=== PATIENT | male | born 1935 | race Caucasian/White ===

== ENCOUNTER 2018-05-02 07:45 | Inpatient (IN) ==
--- NOTE | 2018-04-07 11:08 | Anesthesiology Consultation ---
Date of Service April 07, 2018 Assessment & Plan (1) Encounter for pre-operative examination: Plan: - PCP note= 04/10/18= preop CXR reviewed; does not feel any infiltrate or atelectasis. To consider pursuing "postopertively." Seen by PCP= 04/17/18= "medical clearance is approved. Patient had a slight elevated of his white cell count and of lower lung field changes consistent with atelectasis on his preop.. placed on high dose azithromycin 500mg daily for five days and a repeat CXR done 04/17/18 with no acute findings. - Pulmonary= 01/19/18= Suspected component of obesity hypoventilation syndrome. "Doing well.. No significant complaints." Continued on same regimen. Chart Review Chart Review: Acceptable Risk for Surgery and Patient seen in Pre Admission Testing Teaching & Discussion Pre-Anesthesia Teaching/Discussion Notes: Instructed NPO after midnight before surgery,except medications with 15 cc of water. Medication instructions provided according to the PAT guidelines. History Surgery Operation Date: 05/02/18 11:55 Proposed Procedures p Left Total Knee Arthroplasty - Benny Chu DO Height/Weight Height: 5 ft 9 in Weight: 93.7 kg Allergies Allergy/AdvReac Type Severity Reaction Status Date / Time atropine [From Lomotil] Allergy Unknown Nausea Verified 04/04/18 12:08 diphenoxylate [From Lomotil] Allergy Unknown Nausea Verified 04/04/18 12:08 metronidazole Allergy Unknown felt like Verified 04/04/18 12:08 he was floating Medications Home Medications Medication Instructions Recorded Confirmed Last Taken albuterol sulfate [ProAir HFA] 2 puff INHALATION QID PRN 04/04/18 04/04/18 Unknown aspirin [Aspirin Low Dose] 81 mg PO QAM 04/04/18 04/04/18 Unknown calcium carbonate [Calcium 500] 500 mg PO BID 04/04/18 04/04/18 Unknown denosumab [Prolia] 1 dose SUBCUT Q6M 04/04/18 04/04/18 Unknown fluticasone-vilanterol [Breo 1 inh INHALATION QAM 04/04/18 04/04/18 Unknown Ellipta] montelukast 10 mg PO PM 04/04/18 04/04/18 Unknown multivitamin 1 tab PO QAM 04/04/18 04/04/18 Unknown naproxen sodium [Aleve] 220 mg PO BID PRN 04/04/18 04/04/18 Unknown tiotropium bromide [Spiriva with 1 cap INHALATION QPM 04/04/18 04/04/18 Unknown HandiHaler] Past Medical History Medical History Asthma ON 3L PRN ACTIVITY (FEW HOURS/DAY) Chronic obstructive pulmonary disease ON 3L PRN ACTIVITY (FEW HOURS/DAY) Hiatal hernia SMALL Hx of osteoporosis Obesity Osteoarthritis Past Family History Family History Other FHx: cancer Past Surgical History Surgical History History of back surgery History of cataract surgery B/L History of repair of hiatal hernia Hx of cardiac cath 1980= NO STENTS Hx of cholecystectomy Hx of tooth extraction Past Anesthesia History No Hx of Anesthesia Complications Patient denies family history of issues with anesthesia complications. History of PONV No Motion Sickness Screening History of Motion Sickness: No Social History Smoking Status: Former smoker Smoking End Date: QUIT 2013; 1 PPD X 40 YEARS Hx Alcohol Use: Yes alcohol intake frequency: holidays/special occasions only Hx Substance Use: No Exercise / Class Metabolic Activity III < 4 Walking/Shop/Light housework Review of Systems Patient denies chest pain, shortness of breath (with 3L O2 PRN activity), joint pain, reflux, cough, wheezing, palpitations. Physical Exam Vital Signs VITALS BP 126/81 P 77 TEMP 97.7 RESP 20 SP02 91% on 3L O2 via NC Full neck and c-spine range of motion. Full TMJ range of motion. TMD 2.5 finger breaths Mallampati Score 3 Dentition: full dentures upper; lower partial Lungs: clear throughout to auscultation Cardiac: regular rate and rhythm, no murmurs noted Spine: normal Carotid arteries: negative bruit Extremities: no edema on 3L O2 via NC Testing Electrocardiogram Date: 04/07/18 Findings: + NSR @ (77) Chest X-Ray Date: 04/07/18 Mild cardiomegaly. Infiltrative versus atelectatic changes left lung base. Study is otherwise unremarkable. Repeat CXR= 04/17/18= No active cardiopulmonary disease. Methylmethacrylate present within 3 contiguous mid thoracic vetebra. Compression deformity of multiple thoracic vertebra present (PCP oredered/monitoring). Echocardiogram Date: 01/16/18 EF 56%. Mild AV/MV thickening. No RWMA. Laboratory Results 04/07/18 11:34 04/07/18 11:34 Blood Type B Positive 04/07/18 11:34 Antibody Screen NEGATIVE 04/07/18 11:34 PT 10.3 Seconds (9.0-12.0) 04/07/18 11:34 INR 1.0 (0.9-1.1) 04/07/18 11:34 APTT 24.7 Seconds (21.0-31.0) 04/07/18 11:34 Hemoglobin A1c 5.6 % (4.5-5.6) 04/07/18 11:34 Surgeon made aware of elevated WBC. 04/12/18 UA negative urine culture no growth
--- NOTE | 2018-04-07 11:11 | PAT Medication Instructions ---
Medication Instructions Date of Service April 07, 2018 Home Medications albuterol sulfate [ProAir HFA] 2 puff INHALATION QID PRN aspirin [Aspirin Low Dose] 81 mg PO QAM calcium carbonate [Calcium 500] 500 mg PO BID denosumab [Prolia] 1 dose SUBCUT Q6M fluticasone-vilanterol [Breo 1 inh INHALATION QAM montelukast 10 mg PO PM multivitamin 1 tab PO QAM naproxen sodium [Aleve] 220 mg PO BID PRN tiotropium bromide [Spiriva with 1 cap INHALATION QPM Continue as directed denosumab [Prolia] 1 dose SUBCUT Q6M Per surgeon's instructions naproxen sodium [Aleve] 220 mg PO BID PRN Hold the morning of surgery calcium carbonate [Calcium 500] 500 mg PO BID multivitamin 1 tab PO QAM Take morning of surgery Take the following medication the morning of surgery with a sip of water, OTHERWISE NOTHING TO EAT OR DRINK AFTER MIDNIGHT: albuterol sulfate [ProAir HFA] 2 puff INHALATION QID PRN (if needed) aspirin [Aspirin Low Dose] 81 mg PO QAM fluticasone-vilanterol [Breo 1 inh INHALATION QAM Take evening before surgery albuterol sulfate [ProAir HFA] 2 puff INHALATION QID PRN (if needed) montelukast 10 mg PO PM tiotropium bromide [Spiriva with 1 cap INHALATION QPM Other Notes If you have any questions please call us at [phone] or [phone] or [phone] or [phone]
--- NOTE | 2018-04-07 11:13 | History & Physical Report ---
Date of Service April 07, 2018 Assessment & Plan (1) Osteoarthritis of left knee: Risks and benefits of procedure discussed in detail today, patient would like to proceed with Left TKA @ [facility] as scheduled. will obtain medical clearance prior to surgery as well as obtain PATs at [facility]. Will place on ASA 81mg po bid x 1 month post op, f/u 2 weeks post op for routine post-operative care and xray, sooner if having any problems. Patient unsure at this time if he would like HHPT vs rehab, we will track his progression while inpatient after PT. History of Present Illness Chief Complaint: left knee pain Primary Care Provider: Alexsander Guzman Mr Cervantes is a 82 year old male who is here for a follow up of left knee pain, presents for pre-op evaluation prior to left total knee replacement by dr gamboa at [facility]. He presents with pain on the left side and is chronic non-traumatic. The symptoms occur constantly with intermittent worsening. The problem is unchanged. Currently the patient states that the symptoms are moderate-severe. The pain is described as aching, discomforting and throbbing. The symptoms occur continuously. He rates his current pain as 7/10. The symptoms are aggravated by ascending stairs, descending stairs, kneeling and squatting. Tu states that the symptoms are relieved by no specific activity. In addition to left knee pain the patient is also experiencing limping, nighttime awakening and stiffness. The patient has had a previous MRI and x-ray. Prior NSAIDS include Aleve, naproxen, and aspirin. He has corticosteroid injection on the left side. Patient has had previous visco and Euflexxa series of 3 injections. Allergies Allergy/AdvReac Type Severity Reaction Status Date / Time atropine [From Lomotil] Allergy Unknown Nausea Verified 04/04/18 12:08 diphenoxylate [From Lomotil] Allergy Unknown Nausea Verified 04/04/18 12:08 metronidazole Allergy Unknown felt like Verified 04/04/18 12:08 he was floating Home Medications Home Medications Medication Instructions Recorded Confirmed Type albuterol sulfate [ProAir HFA] 2 puff INHALATION QID PRN 04/04/18 04/04/18 History aspirin [Aspirin Low Dose] 81 mg PO QAM 04/04/18 04/04/18 History calcium carbonate [Calcium 500] 500 mg PO BID 04/04/18 04/04/18 History denosumab [Prolia] 1 dose SUBCUT Q6M 04/04/18 04/04/18 History fluticasone-vilanterol [Breo 1 inh INHALATION QAM 04/04/18 04/04/18 History Ellipta] montelukast 10 mg PO PM 04/04/18 04/04/18 History multivitamin 1 tab PO QAM 04/04/18 04/04/18 History naproxen sodium [Aleve] 220 mg PO BID PRN 04/04/18 04/04/18 History tiotropium bromide [Spiriva with 1 cap INHALATION QPM 04/04/18 04/04/18 History HandiHaler] Past Med/Surg History Medical History Asthma ON 3L PRN Chronic obstructive pulmonary disease ON 3L PRN Hx of osteoporosis On supplemental oxygen therapy 3L PRN Osteoarthritis Surgical History History of back surgery History of cataract surgery B/L History of repair of hiatal hernia Hx of cardiac cath 1981= NO STENTS Hx of cholecystectomy Hx of tooth extraction Family History Other FHx: cancer Social History Current Living Situation: Significant Other Other Information That Helps Us Care for You: No Feels Safe at Home: Yes Safety Concerns: Feels Safe At This Time Smoking Status: Former smoker Smoking End Date: 2013 Hx Alcohol Use: Yes Alcohol Intake Frequency: holidays/special occasions only Hx Substance Use: No Beliefs That Will Affect Care: None Preferred Language: Bengali Communication Ability: Effective Review of Systems All systems reviewed & are unremarkable except as noted in HPI & below Physical Exam 2 Constitutional: well developed and well nourished; no acute distress (using 3L oxygen via nasal canula) Respiratory: + audible wheezes; no respiratory distress (on 3L via nasal cannula), no labored breathing and no cough Cardiovascular: RRR, no murmur, no edema Gastrointestinal (Abdomen): normal bowel sounds, soft, nontender, no hepatosplenomegaly Musculoskeletal: Left Knee Physical Exam Details Ankle ROM L * Active ROM - Factors: normal, Description: active pain free range of motion. Passive ROM - Factors: normal, Description: passive pain free range of motion. Hip ROM L * Active ROM - Factors: normal, Description: active pain free range of motion. Passive ROM - Factors: normal, Description: passive pain free range of motion. Knee ROM L * Active ROM - Flexion: 115 degrees, Extension: 3 degrees, Factors: pain, Description: active painful range of motion. Passive ROM - Flexion: 120 degrees , Extension: 3 degrees, Factors: pain, Description: passive painful range of motion. Strength LE Normal Strength Description - Normal lower extremity: Bilateral. Hip: Right: strength is normal, Left: strength is normal. Knee: Right: strength is normal, Left: strength is normal. Ankle/Foot: Right: strength is normal, Left: strength is normal. Knee * Inspection - Gait: limp. Alignment - Right: varus, Clinical, Left: varus. Ecchymosis - Right: none, Left: none. Effusion - Right: mild, Left: mild. Swelling - Right: mild. Maximum tenderness - Right: diffuse, Left: diffuse. Patella exam - Crepitation - Right: moderate, Left: moderate. Edwin's - Left: Positive. Jelani's - lateral - Right: Positive, Left: Positive. [facility]'s - medial - Right: Positive, Left: Positive. Knee Comments Calf SNT, DP+2 Knee Normal Inspection - Atrophy - Right: Absent, Left: Absent. Patella exam - Apprehension - Right: Negative. Edwin's - Right: Negative. Valgus stress - Right: Negative , Left: Negative. Varus stress - Right: Negative, Left: Negative. Extensor lag - Right: Normal, Left: Normal. Neurovascular LE Normal Neurovascular examination including reflexes, sensation, and pulses is within normal limits. Results & Data Diagnostic Findings Left knee X-ray: findings consistent with degenerative joint disease, joint space narrowing, osteophyte formation, osteophyte formation. chondrocalcinosis present medial and lateral compartments. no acute bony pathology.
--- NOTE | 2018-04-07 12:05 | XRay Report ---
XR chest Pre-admission PA/Lat CLINICAL HISTORY: pat preoperative evaluation COMPARISON STUDY: No previous studies for comparison. FINDINGS: Mild cardia megaly. Atelectatic versus infiltrative change left base. Otherwise appear chaitanya r. Several vertebral plasties of the mid thoracic region. IMPRESSION: Infiltrative versus atelectatic changes left lung base. Study is otherwise unremarkable. The above report was generated using voice recognition software. It may contain grammatical, syntax or spelling errors. Electronically signed by: Rigoberto Fowler M.D. 04/07/2018 12:04 PM
[2018-04-07 12:37] LABS: Basophils # (auto) 0.05 K/uL (0-0.2); Basophils % (auto) 0.4 %; Eosinophils # (auto) 0.09 K/uL (0-0.5); Eosinophils % (auto) 0.7 %; Hematocrit (blood only) 44.9 % (42-52); Hemoglobin 15.2 g/dL (14.0-18.0); Immature Granulocytes # (auto) 0.08 K/uL (0.00-0.02); Immature Granulocytes % (auto) 0.6 %; Lymphocytes # (auto) 1.54 K/uL (1.2-3.4); Lymphocytes % (auto) 12.5 %; Mean Corpuscular Hgb Conc 33.9 g/dL (32-36); Mean Corpuscular Volume 92.4 fL (80-100); Mean Platelet Volume 10.4 fL (7.4-10.4); Monocytes # (auto) 1.23 K/uL (0.11-0.59); Neutrophils # (auto) 9.32 K/uL (1.4-6.5); Neutrophils % (auto) 75.8 %; Platelet Count 195 K/uL (130-400); RDW Coefficient of Variation 13.9 % (11.5-14.5); Red Blood Count 4.86 M/uL (4.7-6.1); White Blood Count 12.31 K/uL (4.8-10.8)
[2018-04-07 12:44] LABS: Albumin Level 3.5 gm/dl (3.4-5.0); BUN Creatinine Ratio 27.9 (10-20); Calcium 8.9 mg/dl (8.5-10.1); Creatinine Clr Calc Pharmacy 103.9 ml/min; Est GFR (African American) 107.1; Est GFR (Non-African American) 92.4
[2018-04-07 12:49] LABS: Partial Thromboplastin Time 24.7 Seconds (21.0-31.0); Prothrombin Time 10.3 Seconds (9.0-12.0)
[2018-04-07 12:56] LABS: Estimated Average Glucose 114 mg/dl
[~2018-05-02 07:45] MED LIST: ACETAMINOPHEN 500 MG TAB PO SCH; BUPIVACAINE 0.5 % 5 MG/1 ML PF 10ML VIAL ONE; CEFAZOLIN 2000MG 2,000 MG/15 ML SYR IV SCH; CeleBREX 200 MG CAP PO SCH; FAMOTIDINE 20 MG TAB PO SCH; GABAPENTIN 300 MG PO SCH; LR 15ML/HR IV SCH; LR 500ML BOLUS IV SCH; METOCLOPRAMIDE HCL 10 MG TABLET PO SCH; ROPIVACAINE 0.5% 5 MG/ML 30 ML VIAL ONE; ROPIVACAINE 0.5% HCL/PF 150 MG, BUPIVACAINE 0.5% MPF 30 ML, EPINEPHrine 30MG/30ML (OR U... INFIL SCH; TRANEXAMIC ACID 1,000 MG **IV Intra-op IV SCH; TRANEXAMIC ACID 1,000 MG **IV Pre-op IV SCH; dexAMETHasone 4 MG TAB PO SCH
[2018-05-02] MEDS ORDERED: PROPOFOL IV EMULSION 10 MG/ML 20 ML VIAL IV ONE (07:46)
[2018-05-02] MEDS ORDERED: MIDAZOLAM HCL 1 MG/ML 2ML VIAL ONE (07:46)
[2018-05-02] MEDS ORDERED: fentaNYL citrate 100 MCG/2 ML VIAL ONE (07:46)
[2018-05-02] MEDS: LR 500ML BOLUS, THEN 15ML/HR IV SCH (08:11)
--- NOTE | 2018-05-02 08:42 | History & Physical Bridge Note ---
Date of Service May 02, 2018 History & Physical Bridge Note I have examined the patient, reviewed the History & Physical and in the interval since the performance of the History & Physical I have noted the following changes of clinical significance: no changes noted
[2018-05-02] MEDS ORDERED: ORTHO JOINT ANESTHETIC ONE (09:36)
[2018-05-02] MEDS ORDERED: BACITRACIN INJ 50,000 UNIT VIAL ONE (09:37)
[2018-05-02] MEDS ORDERED: POVIDONE-IODINE OP SOLN 30 ML BTL ONE (09:37)
--- NOTE | 2018-05-02 11:46 | Operative Report ---
Post Operative Report Date of Surgery May 02, 2018 Pre & Post Diagnosis Operation Date: 05/02/18 10:35 Pre-Op Diagnosis: LEFT KNEE OSTEOARTHRITIS Post-Op Diagnosis: LEFT KNEE OSTEOARTHRITIS Procedure Operation Date: 05/02/18 10:35 Actual Procedures p Left Total Knee Arthroplasty(Left) utilizing Velázquez [employer] Nephew journey 2 long block total knee arthroplasty femur size 7 tibia size 7 polyethylene size 9 patella size 35 oval patella- Benny Chu DO Surgeon Benny Chu DO Disaster Director Reid KAMARA Estimated Blood Loss 5 Findings Consistent with Post-Op Diagnosis Patient presents as an 82-year-old white male with severe end-stage tricompartmental degenerative joint disease no response to conservative therapy upon the bone changes patient presents subchondral cystic changes marginal osteophytes Specimens patellofemoral DJD and eburnated bone medial compartment as well as patellofemoral compartment patient presents for left total knee arthroplasty above findings are noted also to be a moderate or large effusion Drains Medium bore Hemovac Complications none Disposition Accompanied Patient To Recovery: No Disposition: Recovery Room Indications Patient presents as a 82-year-old white male with severe surveys including physical therapy bracing anti-inflammatories relative rest activity modification as well as intra-articular corticosteroid injection and Visco supplementation patient presents for total neuroplasty above findings were noted with severe end-stage DJD [id number] medial osteophyte subchondral cystic changes Description of Procedure After proper prepping and draping of the left lower extremity anterior midline incision was made over the region of the extensor extensor mechanism after meticulous hemostasis was obtained and maintained in subcutaneous tissues a medial parapatellar incision was made The patella was subluxed lateralward the medial lateral gutter were cleaned from any hypertrophic synovitis and scar tissue of the distal femoral block was placed and the distal femoral osteotomy cut was made subsequently the chamfers anterior and posterior osteotomy cuts were made utilizing the 4-in-1 block the tibia was subsequently subluxed anteriorward medial and ateral meniscal remnants were excised in their entirety remnants of the anterior and posterior cruciate ligaments were excised in their entirety excellent exposure of the proximal tibia was obtained the tibial osteotomy guide was placed on the proximal tibial osteotomy cut was made once again the knee was irrigated with copious amounts of sterile saline solution the patella was subsequently everted lateralward thickened scar tissue around the patella was removed the patella was subsequently cut utilizing a freehand technique and was drilled prepared for final preparation and placement of patella socially flexion-extension gaps were checked and the equal and symmetric trials were placed to the appropriate femoral and tibial trials with poly-spacer being placed for equal flexion and extension gaps and full range of motion including extension to 0 and flexion to 140 the trial components after having been taken to recovery range of motion was subsequently removed meticulous hemostasis was obtained and maintained subsequently a knee block injection of joint cocktail including ropivacaine 0.5% 150 mg. Bupivacaine 0.5 % epinephrine 1-200,030 mL's toradol 30 mg dexamethasone 4 mg ketamine 10 mg clonidine 100 micrograms normal saline solution 30 mg was infiltrated into the soft tissues of the posterior knee medial lateral gutters and periosteal synovium special attention was paid to protect neurovascular structures at all times subsequently trial components having been removed the knee was irrigated with sterile saline solution. debris was removed the proximal tibia was subsequently prepared and was made ready for the placement of the tibial component tibial component was also cemented and tamped into position the femoral component was subsequently placed and cemented in the position the patellar component was subsequently cemented in position because hemostasis once again obtained and maintained wound having been thoroughly irrigated with debridement and debridement lavage was performed as well as a medial parapatellar incision closed with #1 Vicryl in interrupted fashion subcutaneous was closed with #2 Vicryl skin was closed with skin clips. PA-C was necessary for prepping and drapping as well as wound closure of deep fascia Sub cutaneous tissue and skin and was necessary for the case. A sterile compressive dressing was placed patient was taken to recovery in stable condition of report dictated by Vlad I attest to the content of the Intraoperative Record and any orders documented therein. Any exceptions are noted below. I attest to the content of the Intraoperative Record and any orders documented therein. Any exceptions are noted below.
--- NOTE | 2018-05-02 12:52 | XRay Report ---
XR knee LT 2V routine HISTORY: 82 years-old Male Surgical Post Op left knee total joint arthroplasty. History of degenerat elijah joint disease. COMPARISON: Left knee radiographs 03/20/2018 TECHNIQUE: 2 views of the left knee FINDINGS: Left knee total joint arthroplasty with patellar resurfacing. Anterior midline skin angela are noted along with surgical drainage catheter and expected postsurgical soft tissue swelling with deep tissu e air. Alignment is satisfactory without acute fracture or retained foreign body. IMPRESSION: Left knee total joint arthroplasty and patella resurfacing demonstrates satisfactory alig nment The above report was generated using voice recognition software. It may contain grammatical, syntax o r spelling errors. Electronically signed by: Tho Mcgee M.D. 05/02/2018 12:51 PM
[2018-05-02] MEDS ORDERED: MAGNESIUM HYDROXIDE SUSP 30 ML UDC PO PRN (12:57)
[2018-05-02] MEDS ORDERED: ALUMINUM/MAGNESIUM SUSP 30 ML UDC PO PRN (12:57)
[2018-05-02] MEDS ORDERED: MoRPHine SULFATE 2 MG/ML CARP IV PRN (12:57)
[2018-05-02] MEDS ORDERED: HYDROmorphone INJ 1 MG/ML SYRINGE IV PRN (12:58)
--- NOTE | 2018-05-02 13:03 | Anesthesiology Progress Note ---
Date of Service May 02, 2018 Anesthesia Post Procedure Vital Signs Vital Signs: Temp Pulse Pulse Resp BP BP Pulse Ox 05/02/18 12:55 36.9 C 72 18 118/72 96 05/02/18 12:45 72 18 93 05/02/18 12:41 73 21 123/73 94 05/02/18 12:40 71 19 93 05/02/18 12:36 71 19 108/67 95 05/02/18 12:35 72 21 95 05/02/18 12:31 70 22 116/68 97 05/02/18 12:30 71 18 98 05/02/18 12:26 71 22 117/70 97 05/02/18 12:24 36.2 C L 72 71 19 107/75 107/75 96 05/02/18 08:10 36.7 C 91 H 18 140/89 94 Pain Intensity Left Knee: Pain Intensity: 0 Notes Mental Status: alert / awake / arousable Patient Amnestic to Procedure: Yes Nausea / Vomiting: adequately controlled Pain: adequately controlled Airway Patency, RR, SpO2: stable & adequate BP & HR: stable & adequate Hydration State: stable & adequate Anesthetic Complications: no major complications apparent and Pt Satisfied with anesthetic care
[2018-05-02] MEDS ORDERED: ALBUTEROL HFA 8 GM INHALER INH PRN (14:15)
--- NOTE | 2018-05-02 14:28 | Consultation ---
Date of Consultation May 02, 2018 Assessment & Plan (1) Osteoarthritis of left knee: - S/P L TKA on 05/02 and doing well post-operative - Pain management, DVT prophylaxis, IVF, PT/OT, surgical management per primary - DVT prophylaxis - ASA 81 mg BID - Patient does express desire for rehab prior to returning home due to multiple steps at his home Present on Admission?: Yes (2) COPD (chronic obstructive pulmonary disease): - No recent exacerbations; has not required intubation for previous exacerbations - Albuterol QID PRN; Montelukast 10 mg daily; Breo daily; Spiriva daily - would like to take home medications as this was brought in and can be arranged robbi. since Breo in non-formulary Present on Admission?: Yes (3) Eosinophilic asthma: - Treatment as above - no acute exacerbation Present on Admission?: Yes (4) Hypothyroidism: - Levothyroxine 100 mcg daily Present on Admission?: Yes History of Present Illness Reason for Consultation: Medical Management Attending Physician: Benny Chu, DO History of Present Illness Mr. Cervantes is an 82 y/o male with PMHx of Eosinophilic Asthma, COPD, and Hypothyroidism who is S/P L TKA. Patient reports good control of this respiratory conditions and utilizes his rescue inhaler as needed. States he normally keeps this on him and typically uses it everyday. Denies needing a nebulizer. Denies having any recent exacerbations requiring steroid treatment, etc. He has not required intubation for his respiratory conditions. He does use supplemental O2 as needed at home. He denies H/O cardiac disease. Had a heart catheterization in the 1980s without need for PCI. Denies angina or exertional CP. Echo with EF 56% and mild aortic and mitral thickening without stenosis or regurgitation. No H/O DVT/PE in the past. Allergies Allergy/AdvReac Type Severity Reaction Status Date / Time atropine [From Lomotil] Allergy Unknown Nausea Verified 05/02/18 08:02 diphenoxylate [From Lomotil] Allergy Unknown Nausea Verified 05/02/18 08:02 metronidazole Allergy Unknown felt like Verified 05/02/18 08:02 he was floating Home Medications Home Medications Medication Instructions Recorded Confirmed Type albuterol sulfate [ProAir HFA] 2 puff INHALATION QID PRN 04/04/18 05/02/18 History aspirin [Aspirin Low Dose] 81 mg PO QAM 04/04/18 04/04/18 History calcium carbonate [Calcium 500] 500 mg PO BID 04/04/18 05/02/18 History denosumab [Prolia] 1 dose SUBCUT Q6M 04/04/18 04/04/18 History fluticasone-vilanterol [Breo 1 inh INHALATION QAM 04/04/18 05/02/18 History Ellipta] montelukast 10 mg PO PM 04/04/18 05/02/18 History multivitamin 1 tab PO QAM 04/04/18 05/02/18 History naproxen sodium [Aleve] 220 mg PO BID PRN 04/04/18 04/04/18 History tiotropium bromide [Spiriva with 1 cap INHALATION QPM 04/04/18 05/02/18 History HandiHaler] levothyroxine 100 mcg PO DAILY 05/02/18 05/02/18 History Patient History Medical History Asthma ON 3L PRN ACTIVITY (FEW HOURS/DAY) Chronic obstructive pulmonary disease ON 3L PRN ACTIVITY (FEW HOURS/DAY) Hiatal hernia SMALL Hx of osteoporosis Obesity Osteoarthritis Surgical History History of back surgery History of cataract surgery B/L History of repair of hiatal hernia Hx of cardiac cath 1981= NO STENTS Hx of cholecystectomy Hx of tooth extraction Family History Other FHx: cancer Social History Current Living Situation: Significant Other Other Information That Helps Us Care for You: No Feels Safe at Home: Yes Safety Concerns: Feels Safe At This Time Smoking Status: Former smoker Smoking End Date: QUIT 2013; 1 PPD X 40 YEARS Hx Alcohol Use: Yes Alcohol Intake Frequency: holidays/special occasions only Hx Substance Use: No Beliefs That Will Affect Care: None Preferred Language: Nepali Communication Ability: Effective Review of Systems Constitutional: no fever, no chills, no fatigue and no weakness Eyes: no worsening vision Ear, Nose, Mouth, Throat: no nasal congestion, no sore throat, no hoarseness and no dysphagia Respiratory: no cough, no chest congestion, no dyspnea and no wheezing Cardiovascular: no chest pain, no palpitations and no edema Gastrointestinal: no abdominal pain, no nausea, no vomiting, no constipation and no diarrhea/loose stools Genitourinary (Male): no dysuria Musculoskeletal: no joint pain and no swelling Integumentary: no rash Neurologic: no tingling and no numbness Physical Exam 2 Vital Signs (Past 24 Hours): Last Vital Signs Temp 36.7 C 05/02/18 13:20 Pulse 74 05/02/18 14:17 Resp 18 05/02/18 14:17 BP 98/61 L 05/02/18 14:17 Pulse Ox 93 05/02/18 14:17 Constitutional: WD/WN, vitals as above Eyes: + anicteric sclerae Neck: trachea midline Respiratory: normal respiratory effort, lungs clear to auscultation Auscultation: + diminished lung sounds Cardiovascular: Rate/Rhythm: regular rate and regular rhythm Heart Sounds: no murmur Gastrointestinal (Abdomen): Inspection/Auscultation: normal bowel sounds Percussion/Palpation: abdomen soft; abdomen nontender Musculoskeletal: Head/Neck/Chest: normocephalic and head atraumatic Skin: no rashes, warm and dry Neurologic: moves all extremities Psychiatric: A+Ox3, euthymic affect
[2018-05-02] MEDS: SODIUM CHLORIDE 0.9% 1000ML 1,000 ML IV SCH (14:41)
[2018-05-02] MEDS: ACETAMINOPHEN 500 MG TAB PO SCH ×2 (14:42→21:13)
[2018-05-02] MEDS: BREO ELLIPTA INH SCH (18:25)
[2018-05-02] MEDS: FERROUS GLUCONATE 324 MG TAB PO SCH (18:27)
[2018-05-02] MEDS: CEFAZOLIN 2000MG 2,000 MG/15 ML SYR IV SCH (20:51)
[2018-05-02] MEDS: MONTELUKAST SODIUM 10 MG TABLET PO SCH (20:56)
[2018-05-02] MEDS: ASPIRIN 81 MG ECTAB PO SCH (20:56)
[2018-05-02] MEDS: DOCUSATE SODIUM 100 MG CAP PO SCH (20:56)
[2018-05-02] MEDS: SENNA 8.6 MG TAB PO SCH (20:56)
[2018-05-03] MEDS: SODIUM CHLORIDE 0.9% 1000ML 1,000 ML IV SCH (00:31)
[2018-05-03] MEDS: LR 500ML BOLUS, THEN 15ML/HR IV SCH ×2 (03:45→03:46)
[2018-05-03] MEDS: OXYCODONE HCL IR 5 MG TAB (IMMEDIATE RELEASE) PO PRN ×4 (04:13→20:39)
[2018-05-03] MEDS: CEFAZOLIN 2000MG 2,000 MG/15 ML SYR IV SCH (04:13)
[2018-05-03] MEDS: ACETAMINOPHEN 500 MG TAB PO SCH ×3 (06:10→22:48)
[2018-05-03] MEDS: LEVOTHYROXINE SODIUM 100 MCG TABLET PO SCH (06:11)
[2018-05-03] MEDS ORDERED: COUGH DROP (SUGAR FREE) LOZ 24 LOZ/1 BOX BUCCAL ONE (06:11)
[2018-05-03 07:12] LABS: Hematocrit (blood only) 37.3 % (42-52); Hemoglobin 12.5 g/dL (14.0-18.0); Mean Corpuscular Hgb Conc 33.5 g/dL (32-36); Mean Corpuscular Volume 91.4 fL (80-100); Mean Platelet Volume 10.4 fL (7.4-10.4); Platelet Count 162 K/uL (130-400); RDW Coefficient of Variation 13.3 % (11.5-14.5); RDW Standard Deviation 44.3 fL (36.4-46.3); Red Blood Count 4.08 M/uL (4.7-6.1); White Blood Count 13.54 K/uL (4.8-10.8)
--- NOTE | 2018-05-03 07:26 | Orthopedic Progress Note ---
Date of Service May 03, 2018 Assessment & Plan (1) History of total left knee replacement: POD #1 s/p Left TKA pt/ot dvt proph with ASA/ISIDRO/SCD d/c discharge options, he would like to discuss Sorin the [place], he will discuss with CM Patient normally on 2L O2 at home at rest and increases to 3L when out and moving around, currently back on 2L. appreciate medicine recommendations: COPD - Albuterol QID PRN; Montelukast 10 mg daily; Breo daily; Spiriva daily - would like to take home medications as this was brought in and can be arranged robbi. since Breo in non-formulary Present on Admission?: Yes Eosinophilic asthma: - Treatment as above - no acute exacerbation Hypothyroidism: - Levothyroxine 100 mcg daily (2) Osteoarthritis of left knee: Subjective POD #1 s/p Left TKA denies CP or SOB denies F/Chills pain 07/02 Physical Exam 2 Vital Signs (Past 24 Hours): Last Vital Signs Temp 36.5 C 18 07:07 Pulse 53 L 05/03/18 07:07 Resp 18 05/03/18 07:07 BP 131/89 05/03/18 07:07 Pulse Ox 61 L 05/03/18 07:07 Constitutional: no acute distress Musculoskeletal: NVDI, calf SNT, negative andrew sign. DP palpable, able to wiggle toes/ankle movement without difficulty. dressing clean dry and intact. Vital Signs Temp 36.5 C 05/03/18 07:07 Pulse 53 L 05/03/18 07:07 Resp 18 05/03/18 07:07 BP 131/89 05/03/18 07:07 Pulse Ox 61 L 05/03/18 07:07 Intake & Output 05/02/18 05/03/18 05/03/18 18:59 06:59 18:59 Intake Total 2099 / 2100 1483.333 / 1483.33 3 Output Total 66 / 66 1310 / 1310 Balance 2033 / 2033 173.333 / 173.333 Weight 92.4 kg Intake: IV 1300 / 1300 1183.333 / 1183.33 3 Lr 1,000 ml @ 999 mls/hr IV . 800 / 800 Q1H1M MATTIE Rx#: [id number] Nss 1000ML 1,0 00 ml @ 100 mls/ 390 / 390 1183.333 / 1183.33 3 hr IV .Q10H SC H Rx#:[id number] Cyklokapron 1, 000 mg In Sodium 110 / 110 Chloride 100 m l @ 660 mls/hr IV TODAY@0600 [facility] Rx#:[id number] IV Perioperative 800 / 800 Oral 300 / 300 Output: Urine 1100 / 1100 Estimated Blood Loss 5 / 5 Drain Output 210 / 210 Left Knee Hemo vac #1 210 / 210
[2018-05-03 07:51] LABS: BUN Creatinine Ratio 20.2 (10-20); Calcium 7.8 mg/dl (8.5-10.1); Creatinine Clr Calc Pharmacy 94.5 ml/min; Est GFR (African American) 102.6; Est GFR (Non-African American) 88.5; Potassium 4.2 mmol/L (3.5-5.1)
[2018-05-03] MEDS: FERROUS GLUCONATE 324 MG TAB PO SCH ×3 (08:41→16:44)
[2018-05-03] MEDS: MULTIVITAMIN TAB PO SCH (08:41)
[2018-05-03] MEDS: ASPIRIN 81 MG ECTAB PO SCH ×2 (08:41→20:40)
[2018-05-03] MEDS: BREO ELLIPTA INH SCH ×2 (08:42→08:50)
[2018-05-03] MEDS: DOCUSATE SODIUM 100 MG CAP PO SCH ×2 (08:44→21:37)
--- NOTE | 2018-05-03 13:59 | Hospitalist Progress Note ---
Date of Service May 03, 2018 Assessment & Plan (1) Osteoarthritis of left knee: - S/P L TKA on 05/02 and doing well post-operatively - Pain management, DVT prophylaxis, IVF, PT/OT, surgical management per primary - DVT prophylaxis - ASA 81 mg BID - Patient does express desire for rehab prior to returning home due to multiple steps at his home Medically optimal for discharge. Hospitalist service will monitor peripherally as he is stable from his medical conditions. However, if any acute change in medical status please do not hesitate to contact us. Present on Admission?: Yes (2) COPD (chronic obstructive pulmonary disease): - No recent exacerbations; has not required intubation for previous exacerbations - Albuterol QID PRN; Montelukast 10 mg daily; Breo daily; Spiriva daily - would like to take home medications as this was brought in and can be arranged robbi. since Breo in non-formulary - Oxygenating on RA without issue - has established supplemental O2 when needed Present on Admission?: Yes (3) Eosinophilic asthma: - Treatment as above - no acute exacerbation (4) Hypothyroidism: - Levothyroxine 100 mcg daily Subjective Feeling well this AM and participating with PT/OT. Pain is controlled. On RA and denies breathing difficulty. Tolerating diet without issue. Is hoping for some rehab prior to returning home due to multiple stairs to [facility] in his home. No acute complaints Constitutional: no fever and no chills Eyes: no worsening vision Ear, Nose, Mouth, Throat: no nasal congestion and no sore throat Respiratory: no cough, no dyspnea, no dyspnea on exertion, no sputum production and no wheezing Cardiovascular: no chest pain, no palpitations and no edema Gastrointestinal: no abdominal pain, no nausea, no vomiting, no constipation and no diarrhea/loose stools Genitourinary (Male): no dysuria Musculoskeletal: no joint pain Integumentary: no rash Neurologic: no tingling and no numbness Physical Exam 2 Vital Signs (Past 24 Hours): Last Vital Signs Temp 36.6 C 05/03/18 10:53 Pulse 75 05/03/18 10:53 Resp 18 05/03/18 10:53 BP 120/78 05/03/18 10:53 Pulse Ox 91 05/03/18 11:03 Constitutional: WD/WN, vitals as above Eyes: + anicteric sclerae Neck: trachea midline Respiratory: normal respiratory effort, lungs clear to auscultation Cardiovascular: Rate/Rhythm: regular rate and regular rhythm Heart Sounds: no murmur Gastrointestinal (Abdomen): Inspection/Auscultation: normal bowel sounds Percussion/Palpation: abdomen soft; abdomen nontender Musculoskeletal: Head/Neck/Chest: normocephalic and head atraumatic LLE with GORDO wrap and drain in place Skin: no rashes, warm and dry Neurologic: moves all extremities Psychiatric: A+Ox3, euthymic affect
[2018-05-03] MEDS: ONDANSETRON INJ 2 MG/ML 2 ML VIAL IV PRN (20:08)
[2018-05-03] MEDS: MONTELUKAST SODIUM 10 MG TABLET PO SCH (20:40)
[2018-05-03] MEDS: SENNA 8.6 MG TAB PO SCH (21:40)
[2018-05-04] MEDS ORDERED: KETOROLAC TROMETHAMINE 10 MG TABLET PO STA (00:35)
[2018-05-04] MEDS: ACETAMINOPHEN 500 MG TAB PO SCH ×3 (05:27→23:10)
[2018-05-04] MEDS: LEVOTHYROXINE SODIUM 100 MCG TABLET PO SCH (05:27)
[2018-05-04 07:16] LABS: BUN Creatinine Ratio 20.5 (10-20); Calcium 8.1 mg/dl (8.5-10.1); Creatinine Clr Calc Pharmacy 84.8 ml/min; Est GFR (African American) 98.1; Est GFR (Non-African American) 84.7
[2018-05-04] MEDS ORDERED: BISACODYL 10 MG SUPP PR PRN (07:57)
--- NOTE | 2018-05-04 07:59 | Orthopedic Progress Note ---
Date of Service May 04, 2018 Assessment & Plan (1) History of total left knee replacement: POD #2 s/p Left TKA pt/ot dvt proph with ASA/ISIDRO/SCD d/c discharge options, he would like to discuss Sorin smita [place] pending Will discuss above complaints with medicine service today. Dulcolax suppository ordered to help with moving his bowels. (2) Osteoarthritis of left knee: as above Subjective Postop day 2 status post left total knee arthroplasty. Patient states that he has had somewhat of a rough night. Pain control in the knee was spotty at best. He states that the pain control is now much better. He also states that his abdomen has been feeling tight and somewhat cramping. He is worried about moving his bowels of which has not happened yet. He states that he was somewhat nauseated this morning. He denies vomiting. He denies shortness of breath, chest pain, lightheadedness. He also states that he feels like he has something stuck in his throat. He feels that it partially clears with trying to cough but still remains. Question of difficulty swallowing at this time. Physical Exam 2 Vital Signs (Past 24 Hours): Last Vital Signs Temp 36.6 C 05/04/18 06:50 Pulse 81 05/04/18 06:50 Resp 18 05/04/18 06:50 BP 132/85 05/04/18 06:50 Pulse Ox 96 05/04/18 06:50 Physical Exam: Left Silverlon knee dressing is clean, dry, and intact. Calves are soft and nontender. Neurovascular is intact. Abdomen is somewhat distended but nontender on palpation. Bowel sounds are present and active. He has some slight higher pitched bowel sounds in the left lower quadrant. No rushes.
[2018-05-04] MEDS ORDERED: BISACODYL 10 MG SUPP PR ONE (08:02)
[2018-05-04] MEDS: FERROUS GLUCONATE 324 MG TAB PO SCH ×3 (09:38→19:00)
[2018-05-04] MEDS: ONDANSETRON INJ 2 MG/ML 2 ML VIAL IV PRN ×2 (09:50→19:04)
--- NOTE | 2018-05-04 10:46 | XRay Report ---
XR KUB CLINICAL HISTORY: Abdominal Pain/Ileus? Pain COMPARISON STUDY: No previous studies for comparison. FINDINGS: Mild nonobstructive ileus. Air-filled colon as well as small bowel. No secondary signs of f ree air. IMPRESSION: Mild nonobstructive ileus. The above report was generated using voice recognition software. It may contain grammatical, syntax or spelling errors. Electronically signed by: Rigoberto Fowler M.D. 05/04/2018 10:44 AM
--- NOTE | 2018-05-04 10:51 | XRay Report ---
SINGLE VIEW CHEST CLINICAL HISTORY: Aspiration. FINDINGS: An AP, portable, upright chest radiograph is compared to study dated 04/07/2018. The examin ation is degraded by portable technique and patient rotation. The heart is enlarged and there is ath erosclerotic calcification of the thoracic aorta. The pulmonary vasculature is noncongested. No airsp adwoa consolidation or large pleural effusion is identified. Atelectasis is noted at the left lung base . No pneumothorax is seen. The skeletal structures are osteopenic. There are thoracic compression def ormities with evidence of previous vertebroplasty. IMPRESSION: Cardiomegaly with no acute cardiopulmonary abnormality. Electronically signed by: Kj Mcclain M.D. 05/04/2018 10:49 AM
[2018-05-04] MEDS ORDERED: ALBUTEROL 0.083% NEBU SOLN 3 ML VIAL NEB PRN (11:43)
--- NOTE | 2018-05-04 11:53 | Hospitalist Progress Note ---
Date of Service May 04, 2018 Assessment & Plan (1) Osteoarthritis of left knee: - S/P L TKA on 05/02 - Pain management, DVT prophylaxis, IVF, PT/OT, surgical management per primary - DVT prophylaxis - ASA 81 mg BID - Patient does express desire for rehab prior to returning home due to multiple steps at his home (2) Postoperative ileus: - Reports nausea, lack of appetite, difficulty moving bowels - had a suppository with 4 small loose stools but no significant improvement yet - KUB with nonobstructive ileus with a lot of distension in the LUQ which is likely causing the upper GI symptoms as well - Reports that he feels like something is stuck in his throat but denies actually difficulty swallowing just ill feeling and lacking an appetite - Will reduce to clear liquid diet until bowels move more adequately and likely this will quickly resolve with appropriate bowel habits Present on Admission?: Yes (3) COPD (chronic obstructive pulmonary disease): - No recent exacerbations; has not required intubation for previous exacerbations - Albuterol QID PRN; Montelukast 10 mg daily; Breo daily; Spiriva daily - would like to take home medications as this was brought in and can be arranged robbi. since Breo in non-formulary (4) Eosinophilic asthma: - Treatment as above - no acute exacerbation (5) Hypothyroidism: - Levothyroxine 100 mcg daily Subjective Not feeling as well today. States he took a pill last night and felt like it got stuck in his throat. States his biggest issue is not being able to move his bowels and associated nausea without emesis. Abd soft but distended. CXR unremarkable but KUB does so a nonobstructive ileus and likely the culprit of his symptoms. Reduced to clear liquid diet. Need for good bowel regimen. Did have small bowel movements since suppository but no significant relief yet and will monitor. After ambulating to the bathroom his pulse Ox was reading 50% with some dyspnea but no evidence of cyanosis. probe moved to forehead and 3 L NC placed with good O2 saturations Constitutional: + fatigue and + anorexia; no fever and no chills Ear, Nose, Mouth, Throat: + dry mouth and + dysphagia; no sore throat and no hoarseness Respiratory: + dyspnea on exertion; no cough and no dyspnea Cardiovascular: no chest pain Gastrointestinal: + abdominal pain, + bloating, + nausea and + constipation; no vomiting and no diarrhea/loose stools Genitourinary (Male): no dysuria Musculoskeletal: + joint pain (intermittent in knee but improving); no body aches Integumentary: no rash Physical Exam 2 Vital Signs (Past 24 Hours): Last Vital Signs Temp 36.6 C 05/04/18 06:50 Pulse 81 05/04/18 06:50 Resp 18 05/04/18 06:50 BP 132/85 05/04/18 06:50 Pulse Ox 91 05/04/18 10:37 Constitutional: WD/WN, vitals as above Eyes: + anicteric sclerae ENMT: Ears: no hearing impairment Mouth: no oral mucosal abnormality Throat: no posterior oropharynx abnormality Neck: trachea midline Respiratory: normal respiratory effort; no respiratory distress Auscultation: + diminished lung sounds Cardiovascular: Rate/Rhythm: regular rate and regular rhythm Gastrointestinal (Abdomen): Inspection/Auscultation: + abdomen distended and normal bowel sounds Percussion/Palpation: abdomen soft; abdomen nontender Musculoskeletal: Head/Neck/Chest: normocephalic, head atraumatic and neck supple L knee with GORDO wrap placed Skin: no rashes, warm and dry Neurologic: moves all extremities Psychiatric: A+Ox3, euthymic affect
[2018-05-04] MEDS: ASPIRIN 81 MG ECTAB PO SCH ×2 (13:25→20:24)
[2018-05-04] MEDS: DOCUSATE SODIUM 100 MG CAP PO SCH ×2 (13:26→21:31)
[2018-05-04] MEDS: MULTIVITAMIN TAB PO SCH (13:26)
[2018-05-04] MEDS: BREO ELLIPTA INH SCH ×3 (13:28→13:35)
[2018-05-04] MEDS ORDERED: SOD PHOSPHATE/SOD BIPHOSPHATE ENEMA 132 ML BTL PR STA (13:38)
[2018-05-04] MEDS: POLYETHYLENE (MIRALAX) 17 GM PACK PO SCH (14:19)
[2018-05-04] MEDS: SENNA 8.6 MG TAB PO SCH (20:23)
[2018-05-04] MEDS: MONTELUKAST SODIUM 10 MG TABLET PO SCH (20:25)
[2018-05-05] MEDS: ACETAMINOPHEN 500 MG TAB PO SCH (06:40)
[2018-05-05] MEDS: LEVOTHYROXINE SODIUM 100 MCG TABLET PO SCH (06:40)
--- NOTE | 2018-05-05 08:05 | Orthopedic Progress Note ---
Date of Service May 05, 2018 Assessment & Plan (1) History of total left knee replacement: POD #3s/p Left TKA pt/ot dvt proph with ASA/ISIDRO/SCD d/c discharge options -he is now wondering if he could go home with home health services versus going to a detention facility. We will see how he progresses with his ambulation and PT today. If he is fairly independent, he may be able to return home with home health services. Non obstructive ileus. Patient has achieved good results with his bowel program. Multiple bowel movements last night. He is feeling much better this morning concerning his abdomen. Plan for discharge to home if progressing well with physical therapy and per medical service recommendations. If he is still somewhat dependent for PT or OT , he may require a short term stay at a skilled facility. (2) Osteoarthritis of left knee: as above Subjective Patient is postop day 3 status post left total knee arthroplasty. Patient had been having some difficulty with his bowels however after multiple bowel movements yesterday, the patient is feeling better. He is sitting up in his chair next to the bed. He states that his abdomen is no longer tender and that the bowel program has helped him a lot. He is hoping to go home today. He denies any shortness of breath, chest pain, lightheadedness. No abdominal pain. Pain is controlled in the left knee. Physical Exam 2 Vital Signs (Past 24 Hours): Last Vital Signs Temp 36.6 C 05/05/18 07:34 Pulse 82 05/05/18 07:34 Resp 22 05/05/18 07:34 BP 137/76 05/05/18 07:34 Pulse Ox 91 05/05/18 07:34 Physical Exam: Silverlon dressing on the left knee is clean, dry, and intact. Calves are soft, nontender. Neurovascular is intact. Toes are mobile. Abdomen is much less distended and is nontender.
[2018-05-05] MEDS: BREO ELLIPTA INH SCH (08:18)
[2018-05-05] MEDS: MULTIVITAMIN TAB PO SCH (08:19)
[2018-05-05] MEDS: ASPIRIN 81 MG ECTAB PO SCH (08:19)
[2018-05-05] MEDS: FERROUS GLUCONATE 324 MG TAB PO SCH ×2 (08:19→12:35)
[2018-05-05] MEDS: POLYETHYLENE (MIRALAX) 17 GM PACK PO SCH (08:22)
[2018-05-05] MEDS: DOCUSATE SODIUM 100 MG CAP PO SCH (08:22)
--- NOTE | 2018-05-05 09:51 | Hospitalist Progress Note ---
Date of Service May 05, 2018 Assessment & Plan (1) Osteoarthritis of left knee: - S/P L TKA on 05/02 - Pain management, DVT prophylaxis, IVF, PT/OT, surgical management per primary - DVT prophylaxis - ASA 81 mg BID - Patient will go home today with outpatient PT (2) Postoperative ileus: - KUB on 05/04 showed dilated loops, there was air in rectum, he had hypoactive BS today he has moved bowels three times after suppository, normoactive bowel sounds, no abdominal pain or bloating ileus resolved, clear for discharge (3) COPD (chronic obstructive pulmonary disease): - No recent exacerbations; has not required intubation for previous exacerbations - Albuterol QID PRN; Montelukast 10 mg daily; Breo daily; Spiriva daily (4) Eosinophilic asthma: - Treatment as above - no acute exacerbation (5) Hypothyroidism: - Levothyroxine 100 mcg daily (6) Chronic respiratory failure with hypoxia: due to COPD, wears 2L at all times he is stable inpatient on 2L will sign off, clear for discharge Subjective patient feeling much better, had several BM no dysphagia today, no nausea, no abdominal pain on exam he has bowel sounds ambulating well in the halls using rolling walker he was going to go to SNF but now going home with home therapy he wears oxygen at home, stable here on 2L Review of Systems All systems reviewed & are unremarkable except as noted in HPI & below Constitutional: no fever and no chills Ear, Nose, Mouth, Throat: no sore throat and no hoarseness Respiratory: + dyspnea on exertion; no cough and no dyspnea Musculoskeletal: + joint pain (intermittent in knee but improving); no body aches Physical Exam 2 Vital Signs (Past 24 Hours): Last Vital Signs Temp 36.6 C 05/05/18 07:34 Pulse 82 05/05/18 07:34 Resp 22 05/05/18 07:34 BP 137/76 05/05/18 07:34 Pulse Ox 91 05/05/18 07:34 Constitutional: WD/WN, vitals as above Eyes: PERRL, conjunctivae normal, anicteric sclerae ENMT: external ear and nose normal, oropharynx normal Neck: trachea midline, no thyromegaly Respiratory: normal respiratory effort, lungs clear to auscultation Cardiovascular: RRR, no murmur, no edema Gastrointestinal (Abdomen): normal bowel sounds, soft, nontender, no hepatosplenomegaly Musculoskeletal: Extremities: + limited ROM of extremities (knee) and + joint enlargement (knee) Skin: no rashes, warm and dry Neurologic: patellar DTR's 2+ bilat, sensation intact and PERRL, EOMI, accommodation nl, no face palsy, no dysarthria Psychiatric: A+Ox3, euthymic affect Lymphatic: no cervical or axillary lymphadenopathy Results & Data Medications Administered Current Inpatient Medications Acetaminophen (Tylenol) 1,000 mg PO Q8 MATTIE Stop: 06/01/18 13:59 Last Admin: 05/05/18 06:40 Dose: 1,000 mg Al Hydrox/Mg Hydrox/Simethicone (Maalox) 15 ml PO Q4H PRN PRN Reason: Heartburn Stop: 06/01/18 12:56 Albuterol (Ventolin Hfa) 2 puffs INH QID PRN PRN Reason: Shortness Of Breath Stop: 06/01/18 14:14 Albuterol (Ventolin 0.083% 2.5mg/3ml) 2.5 mg NEB Q6R PRN PRN Reason: SOB/Wheezing Stop: 06/03/18 11:42 Aspirin (Ecotrin) 81 mg PO BID [facility] Stop: 06/01/18 20:59 Last Admin: 05/05/18 08:19 Dose: 81 mg Bisacodyl (Dulcolax) 10 mg [place] DAILY PRN PRN Reason: Constipation Stop: 06/03/18 07:56 Docusate Sodium (Colace) 100 mg PO BID [facility] Stop: 06/01/18 20:59 Last Admin: 05/05/18 08:22 Dose: 100 mg Ferrous Gluconate (Ferrous Gluconate) 324 mg PO TIDM MATTIE Stop: 06/01/18 16:59 Last Admin: 05/05/18 08:19 Dose: 324 mg Levothyroxine Sodium (Synthroid) 100 mcg PO DAILYBB [facility] Stop: 06/02/18 06:29 Last Admin: 05/05/18 06:40 Dose: 100 mcg Magnesium Hydroxide (Milk Of Magnesia) 30 ml PO Q6H PRN PRN Reason: Constipation Stop: 06/01/18 12:56 Last Admin: 05/03/18 20:08 Dose: 30 ml Montelukast Sodium (Singulair) 10 mg PO PM [facility] Stop: 06/01/18 20:59 Last Admin: 05/04/18 20:25 Dose: 10 mg Morphine Sulfate (Morphine Sulfate) 2 mg IV Q4H PRN PRN Reason: Pain Stop: 05/16/18 12:56 [facility]ivitamins (Multivitamin) [facility] [place] Stop: 06/02/18 08:59 Last Admin: 05/05/18 08:19 Dose: 1 tab Breo Ellipta( Fluticasone- Vilaterol)Non- Formulary Patient's Own Med 1 ea INH [facility] [place] Stop: 06/02/18 08:59 Last Admin: 05/05/18 08:18 Dose: 1 puffs Ondansetron HCl (Zofran) 4 mg IV Q6H PRN PRN Reason: Nausea And Vomiting Stop: 06/01/18 12:56 Last Admin: 05/04/18 19:04 Dose: 4 mg Oxycodone HCl (Roxicodone Immediate Rel) 5 - 10 mg PO Q4H PRN PRN Reason: Pain Stop: 05/16/18 12:56 Last Admin: 05/03/18 20:39 Dose: 10 mg Polyethylene Glycol (Miralax Powder Packet) 17 gm PO DAILY [facility] Stop: 06/03/18 13:44 Last Admin: 05/05/18 08:22 Dose: 17 gm Sennosides (Senokot) 17.2 mg PO HS [facility] Stop: 06/01/18 20:59 Last Admin: 05/04/18 20:23 Dose: Not Given
--- NOTE | 2018-05-08 10:07 | Coding Query ---
Your help is needed for correct coding of this account; please clarify if the patients Post-operative Ileus was: ( ) expected out of the surgery (x ) unexpected complication from the surgery ( )other please specify Thank you Bea DODSON
--- NOTE | 2018-05-09 03:22 | Discharge Summary ---
DISCHARGE DIAGNOSIS: Left knee osteoarthritis. SECONDARY DIAGNOSES: Asthma, chronic obstructive pulmonary disease, osteoporosis, history of supplemental oxygen 3 L as needed, osteoarthritis, nonobstructive ileus during the stay. CONSULTS: Jane Esteban PA-C/Tim Zapata DO COMPLICATIONS: None. PROCEDURES: Left total knee arthroplasty performed by Dr. Chu on 05/02/2018. BRIEF HISTORY: As dictated in history and physical. HOSPITAL SUMMARY: The patient was admitted on the above-noted date and had the above-noted surgery performed, which he tolerated well. Our [facility] hospitalist service was consulted for medical coverage during his stay and on his first postoperative day, he denied chest pain or shortness of breath. Pain was controlled. Vital signs were stable. He was afebrile. Neurovascularly intact. Calves were soft and nontender and dressings clean, dry, and intact. Toes were mobile. He was started on physical therapy protocol and continued on DVT prophylaxis and pain management and medical management per [facility] hospitalist group. By his second postoperative day, the patient had described somewhat of a rough night with pain control, but the pain control for his knee was much better that morning. He stated that his abdomen had been feeling tight and he was having a fair amount of cramping. He was worried about his bowels, which had not happened yet. He stated that he was somewhat nauseated that morning. He did not do any vomiting. He had no shortness of breath, chest pain, or lightheadedness. He also had stated that he had felt like he had something stuck in his throat and was not clearing. He was seen by Jane Esteban and a KUB was ordered and a nonobstructive ileus was noted. He was started on a bowel program and was started on clear liquid diet until he moved his bowels. By 05/05/2018, he was feeling much better after having multiple bowel movements. He was sitting up in a chair next to his bed. He stated his abdomen was no longer tender and that his bowel program had helped him a lot. He was hoping to go home. He had no other complaints. Pain was controlled. Vital signs were stable. He was afebrile. Silverlon dressing was intact. Calves were soft, nontender. Neurovascularly intact. Toes were mobile. Abdomen was much less distended and was nontender. Plans are to continue his PT and he was trying to decide between a [facility] facility and/or home with home health. He eventually chose home health services. after progressing well with his physical therapy. He was otherwise remaining stable. Dr. Zapata had seen the patient and agreed with discharge and he was thusly discharged home on 05/05/2018. For further review, please see chart. LABORATORY AND X-RAY DATA: As per chart. DISCHARGE INSTRUCTIONS: The patient was discharged to home in satisfactory condition on 05/05/2018. DIET: Regular. ACTIVITY: Follow TK instruction sheets and special care instructions as noted. Follow up with Dr. Chu in 2 weeks. The patient to call for appointment if one has not been made for you. DISCHARGE MEDICATIONS: Acetaminophen 1000 mg p.o. q. 8 hours, aspirin 81 mg p.o. b.i.d. for 30 days, cefadroxil 500 mg p.o. b.i.d. for 2 weeks, Colace 100 mg p.o. b.i.d., oxycodone 5 mg p.o. q. 4 hours p.r.n. and Senokot mg p.o. at bedtime. Resume home meds as listed. Stop taking original aspirin dosage and stop taking naproxen.
--- NOTE | 2018-05-10 06:31 | Coding Letter ---
Your help is needed for correct coding of this account; please clarify if the patients Post-operative Ileus was: ( ) expected out of the surgery ( ) unexpected complication from the surgery ( )other please specify Provider Signature: Date: Thank you Bea Servin [facility] Information Management Once completed, please kindly fax back to [phone] For questions please call [phone] [facility]
== END 2018-05-05 13:30 | disposition home health service (06) | DRG 470 ==
LOC: ASU 07:45 → 3E 12:25